=== PATIENT | male | born 1980 | race Caucasian/White ===

== ENCOUNTER 2017-10-25 15:35 | Inpatient (IN) | payer OTHER ==
[~2017-10-25] VITALS: Ht 180.3 cm; Wt 83.7 kg
[~2017-10-25 15:35] MED LIST: AMOXICILLIN500 MG PO; CEPHALEXIN500 M1 PO; FLAGYL500 MG PO; HYDROCODONE BIT1 T11 PO; MOTRIN800 MG PO; NO MEDS; VICODIN 5/500 505 MG PO
[2017-10-25 15:37] VITALS: BP 144/92
[2017-10-25] MEDS ORDERED: SUBOXONE 2 MG-1 EACH SL (15:38)
[2017-10-25 16:20] LABS: BASO % 0.5 % (0.0-1.0); EOS # 0.3 10*3/uL (0.0-0.4); EOS % 4.5 % (1.0-4.0); HEMATOCRIT 40.4 % (42.0-52.0); HEMOGLOBIN 13.4 g/dl (14.0-18.0); LYMPH # 1.8 10*3/uL (1.3-4.4); LYMPH % 32.2 % (27.0-41.0); MEAN CELL VOLUME 87.3 fl (80.0-94.0); MEAN CORPUSCULAR HGB 28.9 pg (27.0-31.0); MEAN CORPUSCULAR HGB CONC 33.2 g/dl (33.0-37.0); MEAN PLATELET VOLUME 8.9 fl (9.6-12.3); MONO # 0.5 10*3/uL (0.1-1.0); MONO % 8.9 % (3.0-9.0); NEUT # 3.1 10*3/uL (2.3-7.9); NEUT % 53.7 % (47.0-73.0); PLATELET COUNT AUTOMATED 230 10*3/uL (130-400); RED BLOOD COUNT 4.63 10*6/uL (4.50-5.90); RED CELL DISTRI WIDTH 13.2 % (0-14.5); WHITE BLOOD COUNT 5.7 10*3/uL (4.8-10.8)
[2017-10-25 16:30] VITALS: BP 132/88
[2017-10-25 16:35] LABS: ALBUMIN 3.6 gm/dl (3.1-4.5); ALKALINE PHOSPHATASE 87 U/L (45-117); BUN 11 mg/dl (7-24); CHLORIDE 105 mmol/L (98-107); CREATININE 0.98 mg/dL (0.70-1.30); POTASSIUM 4.2 mmol/L (3.5-5.1); SGOT/AST 25 IU/L (3-35); SGPT/ALT 45 U/L (12-78); SODIUM 138 mmol/L (136-145); TOTAL PROTEIN 8.3 gm/dL (6.4-8.2)
[2017-10-25 16:50] LABS: URINE AMPHETAMINES < 1000 (1000ng/ml); URINE BARBITURATES < 200 (200ng/ml); URINE BENZODIAZEPINES < 200 (200ng/ml); URINE CANNABINOIDS (THC) < 50 (50ng/ml); URINE COCAINE > 300 (300ng/ml); URINE METHADONE < 300 (300ng/ml); URINE OPIATES < 300 (300ng/ml)
[2017-10-25 16:54] LABS: URINE PHENCYCLIDINE < 25 (25ng/ml)
[2017-10-25 17:30] VITALS: BP 128/74
[2017-10-25 18:30] VITALS: BP 128/72
[2017-10-25] MEDS ORDERED: ZANTAC 150150 MG PO (18:43)
[2017-10-25 20:00] VITALS: BP 125/75
[2017-10-26] VITALS: BP 123/66
[2017-10-26 04:00] VITALS: BP 114/75
[2017-10-26 08:00] VITALS: BP 107/58
[2017-10-26 16:03] VITALS: BP 107/62
[2017-10-26 20:00] VITALS: BP 112/67
[2017-10-27] VITALS: BP 127/68
[2017-10-27 08:00] VITALS: BP 127/80
[2017-10-27 12:00] VITALS: BP 138/77
[2017-10-27 16:00] VITALS: BP 145/94
[2017-10-27 20:00] VITALS: BP 127/74
[2017-10-28] VITALS: BP 119/68
== END 2017-10-28 08:03 | disposition left against medical advice (07) | DRG 894 ==
LOC: ED 15:35 → 4E 16:31 → EDHOLD 16:31 → 4E 17:25
PROVIDERS: Physician Assistant
DX: F14.23 Cocaine dependence with withdrawal (principal); F11.29 Opioid dependence with unspecified opioid-induced disorder; D64.9 Anemia, unspecified; F10.239 Alcohol dependence with withdrawal, unspecified; F11.23 Opioid dependence with withdrawal; F41.9 Anxiety disorder, unspecified; R76.8 Other specified abnormal immunological findings in serum; K27.9 Peptic ulcer, site unspecified, unspecified as acute or chronic, without hemorrhage or perforation; R73.9 Hyperglycemia, unspecified; Z53.21 Procedure and treatment not carried out due to patient leaving prior to being seen by health care provider; Z98.818 Other dental procedure status; Z81.1 Family history of alcohol abuse and dependence; Z71.6 Tobacco abuse counseling; Z81.3 Family history of other psychoactive substance abuse and dependence; Z87.891 Personal history of nicotine dependence

== ENCOUNTER 2020-05-25 18:39 | Emergency (ER) | payer OTHER ==
[~2020-05-25] VITALS: Ht 177.8 cm; Wt 90.7 kg
[~2020-05-25 18:39] MED LIST changes: +SUBOXONE 2 MG-1 EACH SL; +ZANTAC 150150 MG PO
[2020-05-25 20:00] LABS: URINE AMPHETAMINES > 1000 (1000ng/ml); URINE BARBITURATES < 200 (200ng/ml); URINE BENZODIAZEPINES > 200 (200ng/ml); URINE CANNABINOIDS (THC) > 50 (50ng/ml); URINE COCAINE < 300 (300ng/ml); URINE METHADONE < 300 (300ng/ml); URINE OPIATES < 300 (300ng/ml)
[2020-05-25 20:01] LABS: URINE PHENCYCLIDINE < 25 (25ng/ml)
== END 2020-05-25 21:44 ==
LOC: ED 18:39
PROVIDERS: Student in an Organized Health Care Education/Training Program
DX: T50.901A Poisoning by unspecified drugs, medicaments and biological substances, accidental (unintentional), initial encounter (principal); R40.4 Transient alteration of awareness; F17.200 Nicotine dependence, unspecified, uncomplicated; Z88.8 Allergy status to other drugs, medicaments and biological substances; Z79.899 Other long term (current) drug therapy; Y92.89 Other specified places as the place of occurrence of the external cause

== ENCOUNTER 2020-06-02 21:18 | Emergency (ER) | payer OTHER ==
[~2020-06-02] VITALS: Ht 177.8 cm; Wt 99.8 kg
== END 2020-06-02 23:52 | disposition left against medical advice (07) ==
LOC: ED 21:18
DX: T40.1X1A Poisoning by heroin, accidental (unintentional), initial encounter (principal); R11.2 Nausea with vomiting, unspecified; F17.200 Nicotine dependence, unspecified, uncomplicated; Z88.8 Allergy status to other drugs, medicaments and biological substances; Z79.899 Other long term (current) drug therapy; Z98.890 Other specified postprocedural states; Y92.89 Other specified places as the place of occurrence of the external cause; Z53.29 Procedure and treatment not carried out because of patient's decision for other reasons